=== PATIENT | female | born 1980 | race Caucasian/White ===

== ENCOUNTER → 2016-06-01 | Outpatient (CLI) | payer MEDICAID ==
[~2016-06-01] MED LIST: DOCU100C37 PO; FERR-74 PO; GLYB5TAB6 PO; IBUP-1780 PO; NITR-65 PO; OXYC-471 PO; PREN-98 PO
--- NOTE | 2016-06-01 16:59 | Diagnostic Imaging Report ---
INDICATION: Oligomenorrhea. EXAMINATION: Pelvic sonogram. FINDINGS: The uterus measures 8.7 x 6.1 x 4.7 cm. The IUD appears to be in the posterior myometrium rather than the endometrium. The endometrium itself appears normal. The right ovary appears normal. The left ovary is obscured by bowel. IMPRESSION: The IUD appears to have penetrated from the proximal endometrial cavity into the posterior myometrium where it is deployed. CRITICAL FINDING: Report was called to nurse Gifford in the office of Dr. Claire Cast at 4:48 p.m., by tracie (for PATITO). Dictated by: Dictated on workstation # [id number]
== END ==
LOC: RAD 16:12
PROVIDERS: ATTEND Obstetrics & Gynecology
DX: N93.8 Other specified abnormal uterine and vaginal bleeding (principal); N92.1 Excessive and frequent menstruation with irregular cycle; M54.5 Low back pain
CPT/HCPCS: 76830; 76856